=== PATIENT | male | born 1950 | race Caucasian/White ===

== ENCOUNTER → 2020-09-03 | Outpatient (CLI) | payer OTHER | LOC: KOH-I 16:14 | DX: J44.9 Chronic obstructive pulmonary disease, unspecified (principal); R91.8 Other nonspecific abnormal finding of lung field | CPT/HCPCS: 71046 ==

== ENCOUNTER 2021-05-27 17:07 | Inpatient (IN) | payer OTHER ==
[~2021-05-27] VITALS: Ht 182.9 cm; Wt 112.5 kg
[2021-05-27 18:57] LABS: HEMOGLOBIN 9.3 gm/dl (14.0-17.5); RED BLOOD COUNT 2.63 M/UL (4.20-5.50); WHITE BLOOD COUNT 17.6 K/UL (4.5-11.0)
[2021-05-27 19:20] LABS: BUN/CREATININE RATIO 20 (0-10)
[2021-05-28 06:40] LABS: HEMOGLOBIN 9.4 gm/dl (14.0-17.5); RED BLOOD COUNT 2.67 M/UL (4.20-5.50)
[2021-05-28 07:54] LABS: BUN/CREATININE RATIO 24 (0-10)
[2021-05-28] MEDS ORDERED: EFFEXOR XR 150150 MG PO (10:04)
[2021-05-28] MEDS ORDERED: HYDROCODON-ACE1 EAC6 PO (10:04)
[2021-05-28] MEDS ORDERED: DAILY VITE1 EACH PO (10:04)
[2021-05-28] MEDS ORDERED: ALLOPURINOL300 MG PO (10:05)
[2021-05-28] MEDS ORDERED: CRESTOR20 MG PO (10:05)
[2021-05-28] MEDS ORDERED: LEVOTHYROXINE100 MC2 PO (10:05)
[2021-05-28] MEDS ORDERED: VALSARTAN-HCTZ1 EAC2 PO (10:09)
--- NOTE | 2021-05-28 12:20 | NUR ---
NOTIFIED DR SERVIN OF CRITCAL LACTIC ACID OF 18.8. NO NEW ORDERS AT THIS TIME
[2021-05-29 05:08] LABS: HEMOGLOBIN 10.2 gm/dl (14.0-17.5); RED BLOOD COUNT 2.77 M/UL (4.20-5.50)
--- NOTE | 2021-05-29 08:23 | NUR ---
patient request to give patient po apple juice. patient showing no signs of hypoglycemia. reported to dr. madrigal patient's low blood sugar and received order.
--- NOTE | 2021-05-29 13:07 | NUR ---
received several calls from telemetry of desaturation of patient pulse ox . patient using airvo and showing no s/sx of respiratory insufficiency. instructed patient of deep breathing excercises, taking time with activity d/t pulse ox goes to high 80's with activity. available that helps patient and encourage him. dr. hollis aware of the condition of patient and as well.
--- NOTE | 2021-05-29 13:22 | NUR ---
patient on bipap, dr. hollis was on the floor, spoken to pateint and
--- NOTE | 2021-05-29 17:50 | NUR ---
telemetry continue to have episode of low pulse ox, patient will perform deep breathing exercises and goes up to 90's. patient uses incentive spirometer with no difficulty. continue to give encouragement to patient
--- NOTE | 2021-05-30 01:08 | NUR ---
FAMILY MEMBER IN ROOM WITH PT RANG OUT TO SAY HE WAS WAKING UP AND WAS AGITATED PULLING AT HIS BIPAP MASK.I WENT INTO THE PT ROOM HE DI WOKE UP FROM SLEEPING AGITATED AND MORE CONFUSED THAN HIS BASELINE AND PULLED HIS BIPAP MASK OFF. WHEN I TRIED TO PUT THE MASK BACK ON HIS FACE HE BECAME VERY AGGRESSIVE AND STARTED TO GRAB MY WRISTS. I YELLED FOR YAKOV AND SHE CAME IN TO ASSIST ME. WE HELD THE BIPAP MASK ON THE PT AND CALLED RESPIRATORY. JUDITH CAME DID SECURITY AND SECURITY CALLED A IT COMPLIANCE ANALYST. THE PATIENT BROKE THE BIPAP MASK AND THE AIRVO CANULA. RESPIRATORY REPLACED THE BIPAP, WAS NOTIFIED AND AN ORDER FOR A ONE TIME DOSE WAS OF GEODON WAS GIVEN. PATIENT IS NOW ASLEEP WITH BIPAP ON SHOWING NO SIGNS OF ADGITATION. YAKOV AND I HAD TO RESTRAIN THE PATIENTS ARMS PRIOR TO LYLE ADMINISTERING THE MEDICATION. IN ODRER TO KEEP HIM ON THE BIPAP AND TO KEEP HIM FROM HITTING US. THE FAMILY MEMBER HELP THE PATIENTS LEGS TO KEEP HIM FROM KICKING US.
--- NOTE | 2021-05-30 01:19 | NUR ---
5 MG OF GEODON ADMINISTERED IN R ANT THIGH ONCE PER DR KILEY BECERRA LNOT LET ME DOCUMNET ON EMAR
[2021-05-30 05:29] LABS: HEMOGLOBIN 9.8 gm/dl (14.0-17.5); RED BLOOD COUNT 2.72 M/UL (4.20-5.50)
[2021-05-31 05:40] LABS: HEMOGLOBIN 9.7 gm/dl (14.0-17.5); RED BLOOD COUNT 2.7 M/UL (4.20-5.50); WHITE BLOOD COUNT 21.3 K/UL (4.5-11.0)
[2021-05-31 09:14] LABS: HBSAG SCREEN Negative (Negative); HEP A AB, IGM Negative (Negative); HEP B CORE AB, IGM Negative (Negative); HEP C VIRUS AB <0.1 (0.0-0.9)
--- NOTE | 2021-05-31 09:26 | NUR ---
patient continue to have episode of decrease pulse ox 70"s to 80's and during this episode patient doing activity. when instructed to perform deep breathing excercises/ incentive spirometer patient pulse ox 90's. will cont to monitor
--- NOTE | 2021-05-31 18:34 | NUR ---
ON 05/31/21 AT APPROXIMATELY [address] BEASLEY AND MADE HIM AWARE OF PATIENTS FALL. PATIENTS VITALS WERE STABLE AND WNL, PATIENT DENIED PAIN WAS AT THE BEDSIDE WITH PATIENT. PATIENT WAS PUT BACK IN BED AND RESTING COMFORTABLY. WILL CONTINUR TO MONITOR AND ASSESS PATIENT.
[2021-06-01 06:23] LABS: HEMOGLOBIN 10.2 gm/dl (14.0-17.5); RED BLOOD COUNT 2.8 M/UL (4.20-5.50); WHITE BLOOD COUNT 24.3 K/UL (4.5-11.0)
--- NOTE | 2021-06-01 18:35 | NUR ---
patient has been able to use airvo longer. has been getting out of bed and sitting up in chair. increase alertness and able to carry short conversation. RT has been watching patient on his pulse ox with bipap, airvo and adjusting as md order. will cont to monitor.
[2021-06-02 08:07] LABS: RED BLOOD COUNT 2.82 M/UL (4.20-5.50); WHITE BLOOD COUNT 29.8 K/UL (4.5-11.0)
[2021-06-03 04:46] LABS: HEMOGLOBIN 10.2 gm/dl (14.0-17.5); RED BLOOD COUNT 2.87 M/UL (4.20-5.50)
[2021-06-03 04:49] LABS: WHITE BLOOD COUNT 31.1 K/UL (4.5-11.0)
[2021-06-04 07:14] LABS: HEMOGLOBIN 10.4 gm/dl (14.0-17.5); RED BLOOD COUNT 2.92 M/UL (4.20-5.50)
[2021-06-05 08:47] LABS: HEMOGLOBIN 10.6 gm/dl (14.0-17.5)
[2021-06-05 08:48] LABS: WHITE BLOOD COUNT 29.7 K/UL (4.5-11.0)
[2021-06-06 09:37] LABS: RED BLOOD COUNT 3.02 M/UL (4.20-5.50); WHITE BLOOD COUNT 25.7 K/UL (4.5-11.0)
[2021-06-07 05:04] LABS: HEMOGLOBIN 11.8 gm/dl (14.0-17.5); RED BLOOD COUNT 3.2 M/UL (4.20-5.50); WHITE BLOOD COUNT 27.8 K/UL (4.5-11.0)
[2021-06-08 03:56] LABS: HEMOGLOBIN 11.1 gm/dl (14.0-17.5); RED BLOOD COUNT 3.06 M/UL (4.20-5.50); WHITE BLOOD COUNT 23.2 K/UL (4.5-11.0)
--- NOTE | 2021-06-08 09:30 | NUR ---
AFTER MEDICATON ADMINISTRATION PATIENTS CAME OUT OF ROOM AND STATES THAT THE PATIENT IS HAVING A PANIC ATTACK. I IMMEDIATELY WENT INTO PATIENT ROOM AFTER DONING PPE.PATIENT HAD TAKEN HIS BIPAP OFF AND HIS WAS GIVING HIM WATER. PATIENT O2 SATS WERE NOTED TO BE 34% VIA TELE MONITOR PATIENT WAS PLACED BACK AN BIPAP MASK AND PROVIDER CAME INTO ROOM AND DECIDED TO TRANSFER PATIENT TO PCU IF A BED IS AVAILABLE. PATIENTS STATES THAT THE PATIENT IS HYPOXIC ONLY BECAUSE HE IS NERVOUS. I EXPLAINED TO THE THAT THE PATIENT IS IN A CRITICAL STATE AND THAT THE BIPAP IS REQUIRED TO AVOID . PATIENTS STATES THAT BY PUTTING THE BIPAP ON HIM HE BECOMES MORE ANXIOUS. STATES THAT HE WOULD ORDER MEDICATION TO TREAT PATIENT ANXIETY. PATIENT WAS UNABLE TO RECOVER FROM HYPOXIA. PATIENTS STATES THAT SHE DOESNT WANT HIM TRANSFERED TO ANOTHER UNIT BECAUSE THEY WILL NOT LET HER STAY WITH HIM. RESOURCE RN, WALL TO WALL CARPET INSTALLER AND SALES PROFESSIONAL CAME TO BEDSIDE ALONG WITH PULMONOLOGY PA. PULMONOLOGY PA EXPLAINED PLAN OF CARE AT BEDSIDE TO PATIENTS . PATIENT WAS TRASFERED TO ICU ON THE LITHOGRAPHIC PRINTING MACHINIST AND BIPAP BY MYSELF, RESOURCE RN, SALES PROFESSIONAL AND SENIOR SERVICE AIDE. PATIENT STILL SATING IN THE LOW 60'S WITH DISTRESS NOTED. UPON ENTERING ICU ROOM PATIENT WAS INTUBATED AND ICU NURSE JANINE LENZ WAS GIVEN BEDSIDE REPORT.
--- NOTE | 2021-06-08 12:08 | NUR ---
INSULIN PUMP GIVEN DIRECTILLY TO THE FROM BARTOLO PERKINS RN.
[2021-06-08 15:20] LABS: BUN/CREATININE RATIO 25 (0-10)
[2021-06-08 15:24] LABS: HEMOGLOBIN 12.7 gm/dl (14.0-17.5)
[2021-06-08 15:33] LABS: WHITE BLOOD COUNT 48.9 K/UL (4.5-11.0)
--- NOTE | 2021-06-08 16:14 | NUR ---
1418: PATIENT BLOOD PRESSURE DROPPED TO 58/32. PATIENT WAS DETERMINED TO BE IN [facility]. PATIENT UNPRONED AT THAT TIME AND COMPRESSION WERE STARTED BY BETI GALLARDO RN. CODE BLUE ACTIVATED, SEE CODE SHEET IN CHART FOR CODE TIMES AND MEDICATION ADMINISTRATION.
[2021-06-14 15:14] LABS: CELLS ANALYZED 200 (.); CELLS COUNTED 200 (.); DIRECTOR REVIEW: Comment: (.); FISH RESULT Comment: (.); INTERPRETATION Comment: (.); SPECIMEN TYPE BLOOD (.)
== END 2021-06-08 19:40 | disposition expired | DRG 871 ==
LOC: ER1 17:07 → M/S 22:34 → CDU 22:34 → M/S 23:50 → CCU 06-08 10:00
PROVIDERS: Family Medicine; Internal Medicine; Internal Medicine Pulmonary Disease; ADMIT Internal Medicine
PROC: 8E0ZXY6 Isolation (ICD-10-PCS; principal; 2021-05-27)
PROC: XW033E5 Introduction of Remdesivir Anti-infective into Peripheral Vein, Percutaneous Approach, New Technology Group 5 (ICD-10-PCS; 2021-05-28)
PROC: 3E0333Z Introduction of Anti-inflammatory into Peripheral Vein, Percutaneous Approach (ICD-10-PCS; 2021-05-28)
PROC: 0DH67UZ Insertion of Feeding Device into Stomach, Via Natural or Artificial Opening (ICD-10-PCS; 2021-05-28)
PROC: 5A09557 Assistance with Respiratory Ventilation, Greater than 96 Consecutive Hours, Continuous Positive Airway Pressure (ICD-10-PCS; 2021-05-28)
PROC: XW033H5 Introduction of Tocilizumab into Peripheral Vein, Percutaneous Approach, New Technology Group 5 (ICD-10-PCS; 2021-05-28)
PROC: 5A12012 Performance of Cardiac Output, Single, Manual (ICD-10-PCS; 2021-06-08)
PROC: 05HM33Z Insertion of Infusion Device into Right Internal Jugular Vein, Percutaneous Approach (ICD-10-PCS; 2021-06-08)
PROC: 0BH18EZ Insertion of Endotracheal Airway into Trachea, Via Natural or Artificial Opening Endoscopic (ICD-10-PCS; 2021-06-08)
PROC: 5A1935Z Respiratory Ventilation, Less than 24 Consecutive Hours (ICD-10-PCS; 2021-06-08)
PROC: 3E033XZ Introduction of Vasopressor into Peripheral Vein, Percutaneous Approach (ICD-10-PCS; 2021-06-08)
DX: A41.89 Other specified sepsis (principal); U07.1 COVID-19; J15.9 Unspecified bacterial pneumonia; J12.82 Pneumonia due to coronavirus disease 2019; G93.41 Metabolic encephalopathy; R65.21 Severe sepsis with septic shock; I26.99 Other pulmonary embolism without acute cor pulmonale; J80 Acute respiratory distress syndrome; J44.0 Chronic obstructive pulmonary disease with (acute) lower respiratory infection; N17.9 Acute kidney failure, unspecified; E87.1 Hypo-osmolality and hyponatremia; E87.2 Acidosis; I46.8 Cardiac arrest due to other underlying condition; E87.5 Hyperkalemia; Z66 Do not resuscitate; R94.5 Abnormal results of liver function studies; N18.30 Chronic kidney disease, stage 3 unspecified; R74.01 Elevation of levels of liver transaminase levels; R30.0 Dysuria; E11.65 Type 2 diabetes mellitus with hyperglycemia; E66.01 Morbid (severe) obesity due to excess calories; I12.9 Hypertensive chronic kidney disease with stage 1 through stage 4 chronic kidney disease, or unspecified chronic kidney disease; G89.29 Other chronic pain; E78.5 Hyperlipidemia, unspecified; F03.90 Unspecified dementia, unspecified severity, without behavioral disturbance, psychotic disturbance, mood disturbance, and anxiety; Z85.828 Personal history of other malignant neoplasm of skin; Z98.890 Other specified postprocedural states; Z83.3 Family history of diabetes mellitus; Z51.5 Encounter for palliative care; Z68.33 Body mass index [BMI] 33.0-33.9, adult; Z23 Encounter for immunization
CPT/HCPCS: 31500; 36415; 36600; 71045; 71250; 76705; 80053; 80074; 80202; 80307; 81001; 82140; 82550; 82553; 82607; 82728; 82746; 82803; 82962; 83540; 83550; 83605; 83615; 83735; 83874; 83880; 83930; 83935; 84100; 84300; 84439; 84443; 84484; 85007; 85025; 85027; 85045; 85379; 85384; 85610; 85652; 86140; 87040; 87081; 87086; 88271; 88275; 92950; 93005; 93970; 94002; 94640; 94660; 94664; 94760; 96374; 99285; C9113; J0132; J0171; J0282; J0696; J1100; J1335; J1650; J2704; J2920; J3010; J3370; J3486; J7030; J7060; J7070; P9047; Q0249